=== PATIENT | male | born 1990 | race Caucasian/White ===

== ENCOUNTER 2016-06-09 08:28 | Emergency (ER) | payer OTHER ==
[2016-06-09 08:35] VITALS: BP 128/82
--- OUTSIDE RECORDS SUMMARY | 2016-06-09 09:06 | XMS REPORT | Continuity of Care Document ---
:1990 Author Organization [facility] ([facility]) [place] [address] Phone [phone] Care Team Providers Name Role Phone EstuardoDuy Primary Care Provider [phone] Source Comments This disclosure is being made pursuant to the Care Everywhere program, applicable federal and state laws, and may not contain all informaitonavailable regarding this patient.[facility] ([facility]) Active Allergies and Adverse Reactions Allergen Noted Date Severity Reactions Comments Sulfadoxine Urticaria (Hives) Current Medications Not on file Active Problems Problem Noted Date Anxiety state, unspecified 04/04/2003 Backache, unspecified 04/04/2003 Unspecified persistent mental disorders due to conditions classified 2003 elsewhere Expressive language disorder 04/03/2003 Mixed receptive-expressive language disorder 04/03/2003 Disturbance of skin sensation 04/03/2003 Social History Tobacco Use Types Packs/Day Years Used Date Never Assessed Last Filed Vital Signs Vital Sign Reading Time Taken Blood Pressure 140/78 04/06/2005 10:46 AM ADMINISTRATION PHYSICIAN Pulse 76 04/06/2005 10:46 AM ADMINISTRATION PHYSICIAN Temperature 36.6 C (97.88 F) 04/06/2005 10:46 AM ADMINISTRATION PHYSICIAN Respiratory Rate 20 04/06/2005 10:46 AM ADMINISTRATION PHYSICIAN Height 1.76 m (5' 9.29") 04/06/2005 10:46 AM ADMINISTRATION PHYSICIAN Weight 66.098 kg (145 lb 11.5 oz) 04/06/2005 10:46 AM ADMINISTRATION PHYSICIAN Body Mass Index 21.34 04/06/2005 10:46 AM ADMINISTRATION PHYSICIAN Oxygen Saturation - - Plan of Care Health Maintenance Due Date Last Done Comments Hepatitis B Vaccine (1 of 3 - Primary Series) 1991 HPV Vaccine (1 of 3 - Male 3 Dose Series) 2002 Tdap Vaccine 2002 Lipid Disorder Screening 2009 MMR Vaccine 2009 Td Vaccine 2009 Varicella Vaccine (1 of 2 - Adult - No Evidence of 2009 Immunity) Influenza Vaccine: Seasonal (#1) 09/16/2015 Results from Last 3 Months Not on file
--- NOTE | 2016-06-09 09:09 | ERNOTE ---
Psychological HPI - Date Date of Service: 06/09/16 - General Chief Complaint: Anxiety Source: Reports: patient Exam Limitations: Reports: no limitations - Immun/Allergies/Home Medications Allergies/Adverse Reactions: Allergies Sulfa (Sulfonamide Antibiotics) [Sulfa(Sulfonamide Antibiotics)] Allergy ( Verified 06/09/16 08:35) Home Medications: HOME MEDICATIONS lamoTRIgine [Lamictal] 300,150 mg PO BID 05/10/14 [Last Taken 04/04/15] Hydroxyzine HCl 25 mg PO TID PRN #12 tablet 06/09/16 [Last Taken Unknown] - History of Present Illness Narrative: Patient presents telling me he thinks that he has anxiety. He relates that he has felt like he has anxiety for some time but it is worse over the last several weeks. He relates he has never been treated for this. He has not spoken to his doctor about it. He relates the Sx get worse at work. He states that he feels anxious. No vomiting. No CP or SOB. No abdominal pain. No SI or HI. States that he has tyaken anabolic steroida in the past but has stopped those. Time Seen by Provider: 06/09/16 08:51 Arrived by: Reports: private car Onset/duration: Reports: gradual onset Intent: Denies: suicide Mechanism: Denies: overdose Situational Problems: Reports: work Prior Treament: Denies: recently seen Review of Systems - Review of Systems Constitutional: Absent: fever EYE: Present: no symptoms reported ENT: Present: no symptoms reported Respiratory: Absent: shortness of breath Cardiology: Absent: chest pain Gastrointestinal/Abdominal: Absent: abdominal pain Neurological: Present: seizure. Absent: weakness - Patient's Past Medical History Patient History - Medical: Seizures Patient History - Cardiac/Respiratory: No pertinent hx Patient History - Cancer: No Hx of Cancer Patient History - Surgical Procedures: No surgical history Patient History - Other: None - Family History Mother Family History - Medical: No pertinent hx Father Family History - Medical: No pertinent hx - Social History Living Situations: home Abuse History: No History of abuse Psych History: Hx of Anxiety Smoking Status: Never smoker Alcohol Use: none Drug Use: none - Immunizations Immunizations Up to Date: Yes Hx Pneumococcal Vaccination: No History of Influenza Vaccine: No Physical Exam - Physical Exam General Appearance: Present: alert, no apparent distress Eye Exam: Normal inspection: bilateral, PERRL: bilateral Ears, Nose, Throat: Present: normal ENT inspection Neck: Present: normal inspection Respiratory: Present: no respiratory distress, normal breath sounds, no accessory muscle use, lungs clear Cardiovascular/Chest: Present: regular rate, rhythm Gastrointestinal/Abdominal: Present: normal bowel sounds, nontender, nondistended, soft Back Exam: Present: normal range of motion Extremity Exam: Present: normal inspection Neurological Exam: Present: alert, oriented, normal mood/affect, no motor/ sensory deficits, 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 Absent: facial droop, motor weakness Skin Exam: Present: normal color ED Progress - Vital Signs Patient's Vital Signs:: I have reviewed the patient's vital signs. Vital Signs: Vital Signs 06/09/16 08:30 Temperature 36.2 C L Pulse Rate 77 Respiratory 16 Rate Blood Pressure 128/82 O2 Sat by Pulse 99 Oximetry - Progress/Reassessment Chief Complaint: Anxiety Progress Note-Subjective: 06/09/16 09:02 I offered the patient a full lab w/u but he declines this at this time, he states 1 month ago he had a full workup. He understands risks and benefits. I will place him on hydroxyzine and have him see Dr Marte Thr at 1;30 appointment. I discussed warning signs and reasons to returna s well as the need for close f/u. Departure Clinical Impression: Anxiety - Departure Disposition: Home self-care Condition: Stable Additional Instructions: See Dr Marte at 1:30 in the office. No work until then. Return here if you change your mind about having any of the lab testing that I offered you, if you develop thoughts of harming yourself or others or if your condition worsens or changes in any way. Referrals: Duy Marte MD [Primary Care Provider] - Prescriptions: Hydroxyzine HCl 25 mg PO TID PRN #12 tablet PRN Reason: Anxiety
== END 2016-06-09 09:14 | disposition home or self-care (01) ==
LOC: ER 08:28
DX: F41.9 Anxiety disorder, unspecified (principal); G40.409 Other generalized epilepsy and epileptic syndromes, not intractable, without status epilepticus

== ENCOUNTER 2016-11-27 12:39 | Emergency (ER) | payer OTHER ==
[2016-11-27 13:19] LABS: Hematocrit 47.3 % (42.0-52.0); Hemoglobin 17.3 gm/dL (13.5-18.0); Mean Cell Volume 90.3 fl (78-100); Mean Corpuscular Hgb Conc 36.6 g/dl (32-36); Mean Platelet Volume 10.7 fl (6.0-9.5); Neutrophil # 3.6 K/mm3 (1.3-6.0); Neutrophil % 65.1 % (42-75.0); Platelet Count 212 K/mm3 (150-450); Red Blood Count 5.24 M/mm3 (4.7-6.0); Red Cell Distribution Width 12.1 % (11.5-14.0); White Blood Count 5.6 K/mm3 (4.0-10.5)
--- NOTE | 2016-11-27 13:19 | ERNOTE ---
Head Injury HPI - General Injury to: head Time Seen by Provider: 11/27/16 12:46 Source: patient Exam Limitations: no limitations - Immun/Allergies/Home Medications Immunization: IMMUNIZATION HX Immunizations Up to Date Yes History of Influenza Vaccine No Hx Pneumococcal Vaccination No Allergies/Adverse Reactions: Allergies Allergy/AdvReac Type Severity Reaction Status Date / Time Sulfa (Sulfonamide Allergy Verified 06/09/16 08:35 Antibiotics) [Sulfa(Sulfonamide Antibiotics)] Home Medications: HOME MEDICATIONS lamoTRIgine [Lamictal] 300,150 mg PO BID 05/10/14 [Last Taken 04/04/15] - History of Present Illness Narrative: Patient has had a history of seizures since age 13. He initially had a generalized seizure but since seems to have had partial seizures very infrequently. He usually hears noise in his ears and then has his muscle tighten up but does not loose consciousness. Last seizure was about a year ago. Last night he was laying in bed when he heard the noise in his ears, then he remembers nothing till walking up in his bed. He got up went to the bathroom and vomited and noticed the discoloration around his left eye. He has generalized muscle aches currently, there were not witnesses but he assumes that he might have had a seizure. He has not missed any doses of his medication, no recent illness. He has been training for a body building competition and has been taking a fat burner containing ephedra almost daily. Yesterday he also had a lot of caffeine and very little water. Occurred: yesterday Location Occurred: home Head Injury Location: facial Method of Injury: Reports: other Loss of Consciousness: Reports: other Associated Symptoms: Denies: chest pain, cough, shortness of breath, fever/ chills, headaches, neck pain Review of Systems - Review of Systems Constitutional: Absent: recent illness, fever EYE: Absent: double vision ENT: Absent: nose congestion, sore throat Respiratory: Absent: shortness of breath Cardiology: Absent: chest pain Gastrointestinal/Abdominal: Present: See HPI, vomiting, diarrhea - loose BM for a few weeks since changing his diet. Absent: abdominal pain Genitourinary: Present: no symptoms reported Musculoskeletal: Present: muscle pain Skin: Present: other - abrasion right arm Neurological: Present: See HPI Endocrine: Present: no symptoms reported Hematologic/Lymphatic: Present: no symptoms reported - Patient's Past Medical History Patient History - Medical: Anxiety, Depression, Seizures Patient History - Cardiac/Respiratory: No pertinent hx Patient History - Cancer: No Hx of Cancer Patient History - Surgical Procedures: No surgical history Patient History - Other: None - Family History Mother Family History - Medical: No pertinent hx Father Family History - Medical: No pertinent hx - Social History Living Situations: home Abuse History: No History of abuse Psych History: Hx of Anxiety, Hx of Depression Smoking Status: Never smoker Alcohol Use: none Drug Use: none - Immunizations Immunizations Up to Date: Yes Hx Pneumococcal Vaccination: No History of Influenza Vaccine: No Physical Exam - Physical Exam General Appearance: Present: wd/wn, alert, no apparent distress Head Exam: Present: no evidence of injury - except for left eye, contusions - left upper outer eye lid, no significant swelling Eye Exam: Normal inspection: bilateral, PERRL: bilateral, EOMI: bilateral Ears, Nose, Throat: Present: normal ENT inspection, normal pharynx Neck: Present: normal inspection, supple, full range of motion, tender lateral - left. 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 - Vital Signs Patient's Vital Signs:: I have reviewed the patient's vital signs. Vital Signs: Vital Signs 11/27/16 11/27/16 12:41 12:44 Temperature 36.9 C 36.9 C Pulse Rate 71 71 Respiratory 16 16 Rate Blood Pressure 118/66 118/66 O2 Sat by Pulse 99 99 Oximetry - CT/Ultrasound CT/Ultrasound Narrative: CT head: no acute changes - Progress/Reassessment Chief Complaint: Seizure Activity Progress Note-Subjective: 11/27/16 15:06 discussed test results extensive discussion about supplements discussed danger of supplements interacting with his medication or being toxic in themselves, suggested reviewing supplements with his PCP prior to buying them and not relying on reviews of users Departure Clinical Impression: Seizure Qualifiers: Convulsion type: unspecified Qualified Code(s): R56.9 - Unspecified convulsions Contusion of face Qualifiers: Encounter type: initial encounter Qualified Code(s): S00.83XA - Contusion of other part of head, initial encounter - Departure Disposition: Home self-care Condition: Stable Instructions: Form - Excuse from Work, School, or Physical Activity, Seizure, Adult, [id number] Referrals: Duy Marte MD [Primary Care Provider] -
[2016-11-27 13:33] LABS: Albumin * 4.3 gm/dl (3.4-5.0); BUN/Creatinine Ratio 30.3 (9.0-21.6); Bilirubin, Total 0.9 mg/dL (0.0-1.1); Ca. Corrected For Albumin 8.4 mg/dL (8.4-10.2); Potassium 4.2 mmol/L (3.4-4.6); Total Protein 7.8 gm/dL (6.2-8.2)
[2016-11-27 13:33] LABS: Cocaine Ur Negative (NEGATIVE); Urine Barbiturate Negative (NEGATIVE); Urine Benzodiazepines Negative (NEGATIVE); Urine Opiates Negative (NEGATIVE); Urine PCP Negative (NEGATIVE); Urine THC Negative (NEGATIVE)
[2016-11-27 13:42] LABS: Carbon Dioxide 26.2 mmol/L (24-32.6)
[2016-11-27 15:18] VITALS: BP 115/64
== END 2016-11-27 15:10 | disposition home or self-care (01) ==
LOC: ER 12:39
DX: R56.9 Unspecified convulsions (principal); S00.83XA Contusion of other part of head, initial encounter